=== PATIENT | female | born 1990 ===

== ENCOUNTER 2021-01-16 00:21 | Inpatient (IN) | payer MEDICARE, MEDICAID ==
[2021-01-16] MEDS: Lactated Ringers 1,000 ML IV SCH ×6 (00:25→22:15)
[2021-01-16] MEDS ORDERED: hydrOXYzine Pamoate 25 MG Cap PO ONE (01:56)
[2021-01-16] MEDS ORDERED: Sodium Chloride 0.9% 10 ML SDV IV PRN (07:14)
[2021-01-16] MEDS ORDERED: Lidocaine 1% 50 ML MDV INJECT PRN (07:14)
[2021-01-16] MEDS ORDERED: Nalbuphine 10 MG/1 ML Vial IVPUSH PRN (07:14)
[2021-01-16] MEDS ORDERED: Carboprost Tromethamine 250 MCG/1 ML Amp IM PRN (07:14)
[2021-01-16] MEDS ORDERED: Sodium Chloride 0.9% 10 ML Syringe FLUSH PRN (07:14)
[2021-01-16] MEDS ORDERED: Sodium Chloride 0.9% 2.5 ML Syringe FLUSH PRN (07:14)
[2021-01-16] MEDS ORDERED: Misoprostol 200 MCG Tab PO PRN (07:14)
[2021-01-16] MEDS ORDERED: Water For Irrigation,Sterile 1,000 ML Container IRR PRN (07:14)
[2021-01-16] MEDS ORDERED: Butorphanol 1 MG/ML SDV IVPUSH PRN (07:14)
[2021-01-16] MEDS ORDERED: Methylergonovine 0.2 MG/1 ML Amp IM PRN (07:14)
[2021-01-16] MEDS ORDERED: Tranexamic Acid 1,000 MG in Sodium Chloride 0.9% 100 ML IV PRN (07:14)
[2021-01-16] MEDS ORDERED: Oxytocin/0.9 % Sodium Chloride 30 UNIT/500 ML BAG IV SCH ×2 (07:15→09:00)
[2021-01-16] MEDS ORDERED: Terbutaline 1 MG/ML SDV SUBCUT PRN (08:56)
[2021-01-16] MEDS ORDERED: fentaNYL 100 MCG/2 ML SDV ONE ×2 (13:19→23:13)
[2021-01-16] MEDS ORDERED: Ropivacaine 0.2% PF 2 MG/ML 20 ML SDV ONE (13:20)
[2021-01-16] MEDS ORDERED: Ropivacaine HCl/PF 200 ML ONE (13:21)
--- NOTE | 2021-01-16 13:44 | PCM.PREANE ---
Preanesthetic Assessment - Anesthesia/Transfusion/Family Hx Anesthesia History: Prior Anesthesia Without Reaction Transfusion History: No Prior Transfusion(s) Type of Transfusion Reactions: Reports: Unknown - Physical Assessment Height: 5 ft 3 in Weight: 149 lb ASA Class: 2E Mental Status: Alert & Oriented x3 Airway Class: Mallampati = 2 Dentition: Reports: Normal Dentition ROM/Head Extension: Full Lungs: Normal Respiratory Effort Cardiovascular: Regular Rhythm - Lab Values: Laboratory Last Values WBC 8.96 K/uL (4.0-11.0) 01/16/21 07:46 RBC 3.28 M/uL (4.30-5.90) L 01/16/21 07:46 Hgb 10.1 g/dL (12.0-16.0) L 01/16/21 07:46 Hct 29.9 % (36.0-46.0) L 01/16/21 07:46 MCV 91.2 fL (80.0-98.0) 01/16/21 07:46 MCH 30.8 pg (27.0-32.0) 01/16/21 07:46 MCHC 33.8 g/dL (31.0-37.0) 01/16/21 07:46 RDW Std Deviation 43.5 fl (28.0-62.0) 01/16/21 07:46 RDW Coeff of Chad 13 % (11.0-15.0) 01/16/21 07:46 Plt Count 219 K/uL (150-400) 01/16/21 07:46 MPV 9.50 fL (7.40-12.00) 01/16/21 07:46 Nucleated RBC % 0.0 /100WBC 01/16/21 07:46 Nucleated RBCs # 0 K/uL 01/16/21 07:46 Membrane Rupture NEGATIVE 01/16/21 00:43 SARS-CoV-2 RNA (GERA) NEGATIVE (NEGATIVE) 01/16/21 01:21 Blood Type A POSITIVE 01/16/21 07:46 Antibody Screen NEGATIVE 01/16/21 07:46 - Allergies Allergies/Adverse Reactions: Allergies Allergy/AdvReac Type Severity Reaction Status Date / Time codeine Allergy Anaphylactic Verified 01/16/21 00:49 Shock - Anesthesia Plan Pre-Op Medication Ordered: None - Acknowledgements Anesthesia Type Planned: Epidural Pt an Appropriate Candidate for the Planned Anesthesia: Yes Alternatives and Risks of Anesthesia Discussed w Pt/Guardian: Yes Pt/Guardian Understands and Agrees with Anesthesia Plan: Yes Additional Comments: G3 3-4 cm without distress request labor epidural par no questions consent signed PreAnesthesia Questionnaire HEENT History: Reports: None Cardiovascular History: Reports: None Respiratory History: Reports: Asthma Gastrointestinal History: Reports: None Genitourinary History: Reports: None 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: Musculoskeletal History: Reports: None Neurological History: Reports: None Psychiatric History: Reports: Depression Endocrine/Metabolic History: Reports: Hypothyroidism Hematologic History: Reports: None Immunologic History: Reports: None Oncologic (Cancer) History: Reports: None Dermatologic History: Reports: None - Infectious Disease History Infectious Disease History: Reports: None - Past Surgical History Head Surgeries/Procedures: Reports: None HEENT Surgical History: Reports: None Cardiovascular Surgical History: Reports: None Respiratory Surgical History: Reports: None GI Surgical History: Reports: Colostomy, Other (See Below) Other GI Surgeries/Procedures: Colostomy reversal Female Surgical History: Reports: None Endocrine Surgical History: Reports: None Neurological Surgical History: Reports: None Musculoskeletal Surgical History: Reports: Other (See Below) Other Musculoskeletal Surgeries/Procedures:: Bilateral foot surgery for pigeon toe correction in 1989 Oncologic Surgical History: Reports: None Dermatological Surgical History: Reports: None - SUBSTANCE USE Tobacco Use Status *Q: Never Tobacco User Second Hand Smoke Exposure: No Recreational Drug Use History: No - CURRENT (IN HOUSE) MEDS Current Meds: Current Medications Butorphanol Tartrate (Butorphanol 1 Mg/Ml Sdv) 1 mg IVPUSH Q1H PRN PRN Reason: Pain (severe 7-10) Carboprost Tromethamine (Carboprost Tromethamine 250 Mcg/1 Ml Amp) 250 mcg IM ASDIRECTED PRN PRN Reason: Post Hemorrhage Lactated Ringer's (Ringers, Lactated) 1,000 mls @ 150 mls/hr IV ASDIRECTED KATIE Last Infusion: 01/16/21 03:00 Dose: 0 mls/hr Documented by: Lactated Ringer's (Ringers, Lactated) 1,000 mls @ 150 mls/hr IV ASDIRECTED KATIE Last Infusion: 01/16/21 13:29 Dose: 999 mls/hr Documented by: Oxytocin/Sodium Chloride (Oxytocin 30 Unit/500 Ml-Ns) 30 unit in 500 mls @ 999 mls/hr IV TITRATE KATIE Tranexamic Acid 1,000 mg/ (Sodium Chloride) 110 mls @ 660 mls/hr IV ONETIME PRN PRN Reason: Bleeding Oxytocin/Sodium Chloride (Oxytocin 30 Unit/500 Ml-Ns) 30 unit in 500 mls @ 2 mls/hr IV TITRATE KATIE; Protocol Last Titration: 01/16/21 11:49 Dose: 6 munits/min, 6 mls/hr Documented by: Lidocaine HCl (Lidocaine 1% 50 Ml Mdv) 50 ml INJECT ONETIME PRN PRN Reason: Laceration repair Methylergonovine Maleate (Methylergonovine 0.2 Mg/1 Ml Amp) 0.2 mg IM ASDIRECTED PRN PRN Reason: Post Hemorrhage Misoprostol (Misoprostol 200 Mcg Tab) 200 mcg PO ONETIME PRN PRN Reason: Post Hemorrhage Sodium Chloride (Sodium Chloride 0.9% 10 Ml Syringe) 10 ml FLUSH ASDIRECTED PRN PRN Reason: Keep Vein Open Sodium Chloride (Sodium Chloride 0.9% 2.5 Ml Syringe) 2.5 ml FLUSH ASDIRECTED PRN PRN Reason: Keep Vein Open Sodium Chloride (Sodium Chloride 0.9% 10 Ml Sdv) 10 ml IV ASDIRECTED PRN PRN Reason: IV Use Sterile Water (Water For Irrigation,Sterile 1,000 Ml Container) 1,000 ml IRR ASDIRECTED PRN PRN Reason: delivery Terbutaline Sulfate (Terbutaline 1 Mg/Ml Sdv) 0.25 mg SUBCUT ASDIRECTED PRN PRN Reason: Tacysystole Discontinued Medications Fentanyl (Fentanyl 100 Mcg/2 Ml Sdv) Confirm Administered Dose 100 mcg .ROUTE .STK-MED ONE Stop: 01/16/21 13:20 Hydroxyzine Pamoate (Hydroxyzine Pamoate 25 Mg Cap) 25 mg PO ONETIME ONE Stop: 01/16/21 01:57 Last Admin: 01/16/21 02:23 Dose: 25 mg Documented by: Ropivacaine (Naropin 0.2%) Confirm Administered Dose 200 mls @ as directed .ROUTE .STK-MED ONE Stop: 01/16/21 13:22 Ropivacaine (Ropivacaine 0.2% Pf 2 Mg/Ml 20 Ml Sdv) Confirm Administered Dose 20 ml .ROUTE .[facility] ONE Stop: 01/16/21 13:21
--- NOTE | 2021-01-16 13:47 | PCM.SN.2 ---
- Free Text/Narrative Note: time out LLD sterile prep and drape local injected 18 g Tuohy inserted L3-4 interspace + CECI no csf, blood, or parathesias cath in 3 cm, needle removed taped no complications test dose
[2021-01-16] MEDS ORDERED: Lidocaine 2% with EPINEPHrine 1:200,000 20 ML SDV ONE (23:13)
--- NOTE | 2021-01-16 23:37 | PCM.PRNOTE ---
- Free Text/Narrative Note: Anes NOte Patient reports incomplete analgesia in the left inguinal area. Epidural cath was removed, and patient placed in sitting position. A new epidural cath was placed. Sterile technique. Level L2-L3 midline approach. Chloraprep scrub to lumbar area. Sterile fenestrated drape applied. Epidural space easily achieved single attempt with ease using CECI technique. CECI at 3 cm. Cath threaded 5 cm with ease. Cath secured a t skin using sterile clear adhesive dressing. Test 1120 3 cc 1.5% lido with epi negative. Load 100 mcg fentanyl plus 4 cc 2% lido with epi. [place] well. Time with patient [id number]. Hank Arreola CRNA
[2021-01-17] MEDS ORDERED: Ibuprofen 400 MG Tab PO PRN (02:39)
[2021-01-17] MEDS ORDERED: Acetaminophen 500 MG Tab PO PRN (02:39)
[2021-01-17] MEDS ORDERED: Witch Hazel Medicated Pads 40/Jar TOP PRN (02:39)
[2021-01-17] MEDS ORDERED: oxyCODONE 5 MG Tab PO PRN (02:39)
[2021-01-17] MEDS ORDERED: Benzocaine/Menthol 20%-0.5% Spray 78 GM Cannister TOP PRN (02:39)
[2021-01-17] MEDS ORDERED: Lanolin 100% Cream 7 GM Tube TOP PRN (02:39)
[2021-01-17] MEDS ORDERED: Bisacodyl 10 MG Supp RECTAL PRN (02:39)
[2021-01-17] MEDS ORDERED: ceFAZolin 1 GM in Premix Bag 1 BAG IV ONE (02:44)
--- NOTE | 2021-01-17 02:44 | PCM.DEL ---
L & D Note - General Info Date of Service: 01/17/21 - Delivery Note Labor: Augmented by ARM Cervical Ripening Method: Oxytocin Delivery Outcome: Livebirth Delivery Method: Spontaneous Vaginal Delivery-Single Presentation: Left Occiput Anterior (ROCHELLE) Nuchal Cord: Present, Reduced Anesthesia Type: Epidural Amniotic Fluid Description: Clear Episiotomy Type: None Laceration: None Placenta: Manual Removal Cord: 3 Vessels Estimated Blood Loss: 200 Resuscitation Needed: No Score 1 min: 8 Score 5 min: 9 Second Stage Interventions: Reports: Pushing Effectively Delivery Comments (Free Text/Narrative):: Live female delivered at 205am , 8/9 , weight 3300g , 3vc Manual removal of placenta - General Info Date of Service: 01/17/21 - Patient Data Weight - Most Recent: 67.585 kg I&O - Last 24 Hours: Intake & Output 01/16/21 01/16/21 01/17/21 14:59 22:59 06:59 Intake Total 1700 2000 Output Total Balance 170@ 2000 Lab Results Last 24 Hours: Laboratory Results - last 24 hr 01/16/21 01/16/21 Range/Units 07:46 07:46 WBC 8.96 (4.0-11.0) K/uL RBC 3.28 L (4.30-5.90) M/uL Hgb 10.1 L (12.0-16.0) g/dL Hct 29.9 L (36.0-46.0) % MCV 91.2 (80.0-98.0) fL MCH 30.8 (27.0-32.0) pg MCHC 33.8 (31.0-37.0) g/dL RDW Std Deviation 43.5 (28.0-62.0) fl RDW Coeff of Chad 13 (11.0-15.0) % Plt Count 219 (150-400) K/uL MPV 9.50 (7.40-12.00) fL Nucleated RBC % 0.0 /100WBC Nucleated RBCs # 0 K/uL Blood Type A POSITIVE Antibody Screen NEGATIVE Med Orders - Current: Current Medications Butorphanol Tartrate (Butorphanol 1 Mg/Ml Sdv) 1 mg IVPUSH Q1H PRN PRN Reason: Pain (severe 7-10) Carboprost Tromethamine (Carboprost Tromethamine 250 Mcg/1 Ml Amp) 250 mcg IM ASDIRECTED PRN PRN Reason: Post Hemorrhage Lactated Ringer's (Ringers, Lactated) 1,000 mls @ 150 mls/hr IV ASDIRECTED KATIE Last Admin: 01/16/21 15:54 Dose: 150 mls/hr Documented by: Lactated Ringer's (Ringers, Lactated) 1,000 mls @ 150 mls/hr IV ASDIRECTED KATIE Last Admin: 01/16/21 22:15 Dose: 150 mls/hr Documented by: Oxytocin/Sodium Chloride (Oxytocin 30 Unit/500 Ml-Ns) 30 unit in 500 mls @ 999 mls/hr IV TITRATE KATIE Tranexamic Acid 1,000 mg/ (Sodium Chloride) 110 mls @ 660 mls/hr IV ONETIME PRN PRN Reason: Bleeding Oxytocin/Sodium Chloride (Oxytocin 30 Unit/500 Ml-Ns) 30 unit in 500 mls @ 2 mls/hr IV TITRATE KATIE; Protocol Last Titration: 01/16/21 16:13 Dose: 14 munits/min, 14 mls/hr Documented by: Lidocaine HCl (Lidocaine 1% 50 Ml Mdv) 50 ml INJECT ONETIME PRN PRN Reason: Laceration repair Methylergonovine Maleate (Methylergonovine 0.2 Mg/1 Ml Amp) 0.2 mg IM ASDIRECTED PRN PRN Reason: Post Hemorrhage Sterile Water (Water For Irrigation,Sterile 1,000 Ml Container) 1,000 ml IRR ASDIRECTED PRN PRN Reason: delivery Discontinued Medications Fentanyl (Fentanyl 100 Mcg/2 Ml Sdv) Confirm Administered Dose 100 mcg .ROUTE .STK-MED ONE Stop: 01/16/21 13:20 Fentanyl (Fentanyl 100 Mcg/2 Ml Sdv) Confirm Administered Dose 100 mcg .ROUTE .STK-MED ONE Stop: 01/16/21 23:14 Hydroxyzine Pamoate (Hydroxyzine Pamoate 25 Mg Cap) 25 mg PO ONETIME ONE Stop: 01/16/21 01:57 Last Admin: 01/16/21 02:23 Dose: 25 mg Documented by: Ropivacaine (Naropin 0.2%) Confirm Administered Dose 200 mls @ as directed .ROUTE .STK-MED ONE Stop: 01/16/21 13:22 Lidocaine/Epinephrine (Lidocaine 2% With Epinephrine 1:200,000 20 Ml Sdv) Confirm Administered Dose 20 ml .ROUTE .STK-MED ONE Stop: 01/16/21 23:14 Misoprostol (Misoprostol 200 Mcg Tab) 200 mcg PO ONETIME PRN PRN Reason: Post Hemorrhage Ropivacaine (Ropivacaine 0.2% Pf 2 Mg/Ml 20 Ml Sdv) Confirm Administered Dose 20 ml .ROUTE .STK-MED ONE Stop: 01/16/21 13:21 Sodium Chloride (Sodium Chloride 0.9% 10 Ml Syringe) 10 ml FLUSH ASDIRECTED PRN PRN Reason: Keep Vein Open Sodium Chloride (Sodium Chloride 0.9% 2.5 Ml Syringe) 2.5 ml FLUSH ASDIRECTED PRN PRN Reason: Keep Vein Open Sodium Chloride (Sodium Chloride 0.9% 10 Ml Sdv) 10 ml IV ASDIRECTED PRN PRN Reason: IV Use Terbutaline Sulfate (Terbutaline 1 Mg/Ml Sdv) 0.25 mg SUBCUT ASDIRECTED PRN PRN Reason: Tacysystole - Exam Urinary Catheter Total Time: 0Days 0Hours - Problem List & Annotations (1) Vaginal delivery SNOMED Code(s): 086293406 Code(s): O80 - ENCOUNTER FOR FULL-TERM UNCOMPLICATED DELIVERY Status: Acute Current Visit: Yes - Problem List Review Problem List Initiated/Reviewed/Updated: Yes - My Orders Last 24 Hours: My Active Orders 01/16/21 07:14 Patient Status [ADT] Routine May Shower [RC] ASDIRECTED Notify Provider [RC] PRN Butorphanol [Stadol] 1 mg IVPUSH Q1H PRN Carboprost Tromethamine [Hemabate DS] 250 mcg IM ASDIRECTED PRN Lidocaine 1% [Xylocaine 1%] 50 ml INJECT ONETIME PRN Methylergonovine [Methergine] 0.2 mg IM ASDIRECTED PRN Tranexamic Acid [Cyklokapron] 1,000 mg Sodium Chloride 0.9% [Normal Saline] 100 ml IV ONETIME Water For Irrigation,Sterile [Sterile Water for Irrigation] 1,000 ml IRR ASDIRECTED PRN Peripheral IV Insertion Adult [OM.PC] Routine 01/16/21 07:15 Lactated Ringers [Ringers, Lactated] 1,000 ml IV ASDIRECTED Oxytocin/0.9 % Sodium Chloride [Oxytocin 30 Unit/500 ML-NS] 30 unit in 500 ml IV TITRATE 01/16/21 07:46 RPR (SYPHILIS SERO) W/ RFLX [REF] Routine 01/17/21 02:05 BLOOD GAS ARTERIAL UMBILICAL [BG] Routine BLOOD GAS VENOUS UMBILICAL [BG] Routine 01/17/21 02:39 May Shower [RC] ASDIRECTED Up ad Tami [RC] ASDIRECTED Vital Signs [RC] PER UNIT ROUTINE Acetaminophen [Tylenol Extra Strength] 1,000 mg PO Q4H PRN Acetaminophen [Tylenol Extra Strength] 500 mg PO Q4H PRN Benzocaine/Menthol [Dermoplast Pain Relief 20%-0.5% Cowan] 78 gm TOP ASDIRECTED PRN Docusate Sodium [Colace] 100 mg PO Q12H PRN Ibuprofen [Motrin] 400 mg PO Q4H PRN Ibuprofen [Motrin] 800 mg PO Q6H PRN Lanolin [Lansinoh HPA] See Dose Instructions TOP ASDIRECTED PRN bisacodyL [Dulcolax] 10 mg RECTAL ONETIME PRN oxyCODONE 5 mg PO Q2H PRN witch Scott [Tucks] 1 pad TOP ASDIRECTED PRN Assess Lochia [WOMSER] Per Unit Routine Assess Uterine Involution [WOMSER] Per Unit Routine Peripheral IV Discontinue [OM.PC] Routine Resuscitation Status Routine 01/18/21 05:11 HEMOGLOBIN/HEMATOCRIT,HH [HEME] Timed - Assessment Assessment:: 30yo s/p with Manual removal of placenta , PPDO A positive Rubella immune - Plan Plan:: Ancef 2gm X 1 dose Routine care
--- NOTE | 2021-01-17 06:32 | PCM48HPAN ---
Post Anesthesia Note - EVALUATION WITHIN 48HRS OF ANESTHETIC Vital Signs in Normal Range: Yes Patient Participated in Evaluation: Yes Respiratory Function Stable: Yes Airway Patent: Yes Cardiovascular Function Stable: Yes Hydration Status Stable: Yes Pain Control Satisfactory: Yes Nausea and Vomiting Control Satisfactory: Yes Mental Status Recovered: Yes Vital Signs: Last Vital Signs Temp 36.8 C 01/17/21 06:15 Pulse 85 01/17/21 06:15 Resp 14 01/17/21 06:15 BP 110/61 01/17/21 06:15 Pulse Ox 96 01/17/21 06:15
[2021-01-17] MEDS: Ibuprofen 800 MG Tab PO PRN ×2 (07:06→19:41)
[2021-01-17] MEDS: Acetaminophen 500 MG Tab PO PRN ×2 (08:28→16:49)
[2021-01-17] MEDS: Docusate Sodium 100 MG Cap PO PRN (08:28)
--- NOTE | 2021-01-17 15:41 | OR ---
SURGEON: KAREY REINOSO DATE OF PROCEDURE: 01/17/2021 PROCEDURE: Normal spontaneous vaginal delivery with manual removal of placenta. PREOPERATIVE DIAGNOSIS: 30-year-old G4, P2-0-1-2 at 38 weeks 6 days, undergoing augmentation of labor. POSTOPERATIVE DIAGNOSIS: 30-year-old G4, P2-0-1-2 at 38 weeks 6 days, undergoing augmentation of labor. ESTIMATED BLOOD LOSS: 300 mL. IV FLUIDS: Pitocin running COMPLICATION: None. NOTES AND FINDINGS: A live female delivered at 2:05 a.m. score was 8 and 9. Weight is 3300 g. BRIEF HISTORY ABOUT THE PATIENT: The patient is a 30-year-old G4, P2-0-1-2 at 38 weeks and 5 days when she presented by ambulance, referred from [place] because of early labor and the patient was observed for a couple of hours and she had no cervical change, but due to distance from the hospital, she was cared for augmentation of labor. Augmentation was started with Pitocin after which AROM was done. After AROM, she had a normal labor curve. However, during her labor course she occasionally, had some decelerations, which recovered back with intrauterine resuscitation. With the patient being fully dilated, she was encouraged to push. DESCRIPTION OF PROCEDURE: With good pushing effort, she delivered the head subsequently by the anterior and posterior shoulder. There was a cord around the neck that was reduced after delivery of the body. The infant was placed on the maternal abdomen. Delayed cord clamping was observed. Cord blood gases were obtained. Attempt to deliver the placenta was via controlled cord traction, was not successful. After waiting for about 15 minutes, the manual removal was done by cleaving the plane between the placenta and the uterus,then the placenta was delivered without difficulty. The uterus was noted to be firm. Perineum was inspected afterwards, which was noted to be intact. The patient would get Ancef because of the manual removal of the placenta. The patient tolerated the procedure well. She was left in the Labor and Delivery room in stable condition. LOURDES CHAVEZ /[id number] PATRICK
[2021-01-18] MEDS: Acetaminophen 500 MG Tab PO PRN ×2 (00:37→09:06)
[2021-01-18] MEDS: Ibuprofen 800 MG Tab PO PRN (05:12)
--- NOTE | 2021-01-18 05:29 | PCM.PNPP ---
- General Info Date of Service: 01/18/21 Subjective Update: 30yo P3 s/p , PPD1, she is bottle feeding , Normal lochia , voiding without difficulty Functional Status: Reports: Pain Controlled, Tolerating Diet, Ambulating, Urinating - Review of Systems General: Reports: No Symptoms HEENT: Reports: No Symptoms Pulmonary: Reports: No Symptoms Cardiovascular: Reports: No Symptoms Gastrointestinal: Reports: No Symptoms Genitourinary: Reports: No Symptoms Musculoskeletal: Reports: No Symptoms Skin: Reports: No Symptoms Neurological: Reports: No Symptoms Psychiatric: Reports: No Symptoms - General Info Date of Service: 01/18/21 - Patient Data Vital Signs - Most Recent: Last Vital Signs Temp 36.2 C 01/17/21 20:00 Pulse 78 01/17/21 20:00 Resp 16 01/17/21 20:00 BP 106/57 L 01/17/21 20:00 Pulse Ox 98 01/17/21 20:00 Weight - Most Recent: 67.585 kg Med Orders - Current: Current Medications Acetaminophen (Acetaminophen 500 Mg Tab) 500 mg PO Q4H PRN PRN Reason: Pain (mild 1-3) Acetaminophen (Acetaminophen 500 Mg Tab) 1,000 mg PO Q4H PRN PRN Reason: Pain (mild 1-3) Last Admin: 01/18/21 00:37 Dose: 1,000 mg Documented by: Benzocaine/Menthol (Benzocaine/Menthol 20%-0.5% Nabb 78 Gm Cannister) 78 gm TOP ASDIRECTED PRN PRN Reason: Perineal Comfort Measure Last Admin: 01/17/21 07:08 Dose: 1 canister Documented by: Bisacodyl (Bisacodyl 10 Mg Supp) 10 mg RECTAL ONETIME PRN PRN Reason: Constipation Butorphanol Tartrate (Butorphanol 1 Mg/Ml Sdv) 1 mg IVPUSH Q1H PRN PRN Reason: Pain (severe 7-10) Carboprost Tromethamine (Carboprost Tromethamine 250 Mcg/1 Ml Amp) 250 mcg IM ASDIRECTED PRN PRN Reason: Post Hemorrhage Docusate Sodium (Docusate Sodium 100 Mg Cap) 100 mg PO Q12H PRN PRN Reason: Constipation Last Admin: 01/17/21 08:28 Dose: 100 mg Documented by: Emollient Ointment (Lanolin 100% Cream 7 Gm Tube) 0 gm TOP ASDIRECTED PRN PRN Reason: Sore Nipples Last Admin: 01/17/21 07:08 Dose: 1 tube Documented by: Lactated Ringer's (Ringers, Lactated) 1,000 mls @ 150 mls/hr IV ASDIRECTED KATIE Last Admin: 01/16/21 15:54 Dose: 150 mls/hr Documented by: Lactated Ringer's (Ringers, Lactated) 1,000 mls @ 150 mls/hr IV ASDIRECTED KATIE Last Admin: 01/16/21 22:15 Dose: 150 mls/hr Documented by: Oxytocin/Sodium Chloride (Oxytocin 30 Unit/500 Ml-Ns) 30 unit in 500 mls @ 999 mls/hr IV TITRATE KATIE Tranexamic Acid 1,000 mg/ (Sodium Chloride) 110 mls @ 660 mls/hr IV ONETIME PRN PRN Reason: Bleeding Oxytocin/Sodium Chloride (Oxytocin 30 Unit/500 Ml-Ns) 30 unit in 500 mls @ 2 mls/hr IV TITRATE [facility]; Protocol Last Titration: 01/16/21 18:55 Dose: 6 munits/min, 6 mls/hr Documented by: Ibuprofen (Ibuprofen 400 Mg Tab) 400 mg PO Q4H PRN PRN Reason: Pain (mild 1-3) Ibuprofen (Ibuprofen 800 Mg Tab) 800 mg PO Q6H PRN PRN Reason: Pain (mild 1-3) Last Admin: 01/18/21 05:12 Dose: 800 mg Documented by: Lidocaine HCl (Lidocaine 1% 50 Ml Mdv) 50 ml INJECT ONETIME PRN PRN Reason: Laceration repair Methylergonovine Maleate (Methylergonovine 0.2 Mg/1 Ml Amp) 0.2 mg IM ASDIRECTED PRN PRN Reason: Post Hemorrhage Oxycodone HCl (Oxycodone 5 Mg Tab) 5 mg PO Q2H PRN PRN Reason: Pain (severe 7-10) Sterile Water (Water For Irrigation,Sterile 1,000 Ml Container) 1,000 ml IRR ASDIRECTED PRN PRN Reason: delivery Witch Mary (Witch Mary Medicated Pads 40/Jar) 1 pad TOP ASDIRECTED PRN PRN Reason: comfort care Last Admin: 01/17/21 07:07 Dose: 1 tub Documented by: Discontinued Medications Fentanyl (Fentanyl 100 Mcg/2 Ml Sdv) Confirm Administered Dose 100 mcg .ROUTE .[facility] ONE Stop: 01/16/21 13:20 Last Admin: 01/17/21 07:18 Dose: Not Given Documented by: Fentanyl (Fentanyl 100 Mcg/2 Ml Sdv) Confirm Administered Dose 100 mcg .ROUTE .[facility] ONE Stop: 01/16/21 23:14 Last Admin: 01/17/21 07:19 Dose: Not Given Documented by: Hydroxyzine Pamoate (Hydroxyzine Pamoate 25 Mg Cap) 25 mg PO ONETIME ONE Stop: 01/16/21 01:57 Last Admin: 01/16/21 02:23 Dose: 25 mg Documented by: Ropivacaine (Naropin 0.2%) Confirm Administered Dose 200 mls @ as directed .ROUTE .[facility] ONE Stop: 01/16/21 13:22 Last Admin: 01/17/21 07:20 Dose: Not Given Documented by: Cefazolin Sodium/Dextrose 1 gm (/ Premix) 50 mls @ 100 mls/hr IV ONETIME ONE Stop: 01/17/21 03:13 Last Admin: 01/17/21 03:28 Dose: 100 mls/hr Documented by: Lidocaine/Epinephrine (Lidocaine 2% With Epinephrine 1:200,000 20 Ml Sdv) Confirm Administered Dose 20 ml .ROUTE .[facility] ONE Stop: 01/16/21 23:14 Last Admin: 01/17/21 07:19 Dose: Not Given Documented by: Misoprostol (Misoprostol 200 Mcg Tab) 200 mcg PO ONETIME PRN PRN Reason: Post Hemorrhage Ropivacaine (Ropivacaine 0.2% Pf 2 Mg/Ml 20 Ml Sdv) Confirm Administered Dose 20 ml .ROUTE .[facility] ONE Stop: 01/16/21 13:21 Last Admin: 01/17/21 07:18 Dose: Not Given Documented by: Sodium Chloride (Sodium Chloride 0.9% 10 Ml Syringe) 10 ml FLUSH ASDIRECTED PRN PRN Reason: Keep Vein Open Sodium Chloride (Sodium Chloride 0.9% 2.5 Ml Syringe) 2.5 ml FLUSH ASDIRECTED PRN PRN Reason: Keep Vein Open Sodium Chloride (Sodium Chloride 0.9% 10 Ml Sdv) 10 ml IV ASDIRECTED PRN PRN Reason: IV Use Terbutaline Sulfate (Terbutaline 1 Mg/Ml Sdv) 0.25 mg SUBCUT ASDIRECTED PRN PRN Reason: Tacysystole - Infant Interaction Support Person: Significant Other - Recovery Exam Fundal Tone: Firm Fundal Level: At Umbilicus Fundal Placement: Midline Lochia Amount: Scant Lochia Color: Rubra/Red Perineum Description: Intact, Minimal Bruising/Swelling Episiotomy/Laceration: None Bladder Status: Voiding Urinary Elimination: Voided - Exam General: Alert HEENT: Pupils Equal Neck: Supple Lungs: Clear to Auscultation Cardiovascular: Regular Rate, Regular Rhythm GI/Abdominal Exam: Normal Bowel Sounds Extremities: Normal Inspection Neurological: No New Focal Deficit Psy/Mental Status: Alert - Problem List & Annotations (1) Vaginal delivery SNOMED Code(s): 665077982 Code(s): O80 - ENCOUNTER FOR FULL-TERM UNCOMPLICATED DELIVERY Status: Acute Current Visit: Yes - Problem List Review Problem List Initiated/Reviewed/Updated: Yes - My Orders Last 24 Hours: My Active Orders 01/18/21 05:11 HEMOGLOBIN/HEMATOCRIT,HH [HEME] Routine - Assessment Assessment:: 30y P3 s/p with Manual removal of placenta , PPD1 - Plan Plan:: Routine care Pain control as needed Discharge home today
[2021-01-18] MEDS: Docusate Sodium 100 MG Cap PO PRN (09:06)
== END 2021-01-18 13:40 | disposition home or self-care (01) | DRG 807 ==
LOC: MW.OBCHECK 00:21 → MW.OB 00:50 → MW.OBCHECK 07:13 → MW.OB 07:14 → OBSVTOIN 01-17 02:05 → MW.OB 01-17 05:45
PROVIDERS: ADMIT Obstetrics & Gynecology; ATTEND Obstetrics & Gynecology
PROC: 10E0XZZ Delivery of Products of Conception, External Approach (ICD-10-PCS; principal; 2021-01-17)
PROC: 10907ZC Drainage of Amniotic Fluid, Therapeutic from Products of Conception, Via Natural or Artificial Opening (ICD-10-PCS; 2021-01-17)
PROC: 3E0R3BZ Introduction of Anesthetic Agent into Spinal Canal, Percutaneous Approach (ICD-10-PCS; 2021-01-17)
PROC: 00HU33Z Insertion of Infusion Device into Spinal Canal, Percutaneous Approach (ICD-10-PCS; 2021-01-17)
DX: O69.81X0 Labor and delivery complicated by cord around neck, without compression, not applicable or unspecified (principal); Z37.0 Single live birth; Z3A.38 38 weeks gestation of pregnancy; Z88.5 Allergy status to narcotic agent; Z20.822 Contact with and (suspected) exposure to COVID-19; O76 Abnormality in fetal heart rate and rhythm complicating labor and delivery
CPT/HCPCS: 36415; 51702; 59025; 59409; 82803; 84112; 85014; 85018; 85027; 86592; 86850; 86900; 86901; A9270-GY; J0690; J2590; J2795; J3010; J7120; U0002